=== PATIENT | female | born 1945 | race Caucasian/White ===

== ENCOUNTER 2016-03-22 17:53 | Emergency (ER) | payer MEDICARE ==
--- NOTE | 2016-03-22 18:32 | RAD ---
RIGHT ELBOW 3 VIEWS HISTORY: Status post fall with right arm injury. Pain at the elbow. COMPARISONS: None. TECHNIQUE: Frontal, lateral, and oblique views of the right elbow. ALIGNMENT: Grossly unremarkable. FRACTURE: Nondisplaced, mildly comminuted fracture of the olecranon process. SOFT TISSUES: Medial soft tissue swelling and joint effusion. RADIOOPAQUE FOREIGN BODY: None. IMPRESSION: Nondisplaced, mildly comminuted fracture of the olecranon process. Associated soft tissue swelling and joint effusion.
--- NOTE | 2016-03-22 18:34 | RAD ---
RIGHT WRIST 3 VIEWS HISTORY: Status post fall, right wrist pain. COMPARISONS: None. TECHNIQUE: Frontal, lateral, and oblique views of the right wrist. BONE DENSITY: Diffuse osteopenia. ALIGNMENT: Grossly unremarkable. FRACTURE: Subtle sclerosis and lucency of the distal radius suspicious for nondisplaced fracture. Minor contour irregularity of the pisiform. DEGENERATIVE CHANGE: Mild degeneration at radial aspects of the carpus. SOFT TISSUES: Grossly unremarkable. RADIOOPAQUE FOREIGN BODY: None. IMPRESSION: Diffuse osteopenia. Possible nondisplaced fractures of the distal radius and pisiform.
== END 2016-03-22 20:43 | disposition home or self-care (01) ==
LOC: ED 17:53
DX: S52.021A Displaced fracture of olecranon process without intraarticular extension of right ulna, initial encounter for closed fracture (principal); E78.00 Pure hypercholesterolemia, unspecified; I10 Essential (primary) hypertension; G35 Multiple sclerosis; Z79.899 Other long term (current) drug therapy; W10.9XXA Fall (on) (from) unspecified stairs and steps, initial encounter